=== PATIENT | female | born 1945 | race Two or more races ===

== ENCOUNTER → 2020-09-20 | Outpatient (CLI) | payer OTHER ==
[~2020-09-20] MED LIST: KOMBIGLYZE XR1 EAC2 PO; LEVSIN/SL0.125 MG SL; Mucinex 600 MG TABLET.SA PO; PEPCID20 MG PO; TESSALON PERLE100 M1 PO; TUSSIONEX PENNKI5 ML PO
== END | disposition home or self-care (01) ==
LOC: PPH VACUNA
PROVIDERS: ATTEND Emergency Medicine Pediatric Emergency Medicine
DX: Z23 Encounter for immunization (principal)

== ENCOUNTER 2023-01-03 10:16 | Emergency (ER) | payer OTHER ==
[~2023-01-03] VITALS: Ht 162.6 cm; Wt 65.3 kg
[2023-01-03] MEDS ORDERED: LISINOPRIL5 MG PO (10:40)
[2023-01-03] MEDS ORDERED: ATORVASTATIN CA20 MG PO (10:41)
== END 2023-01-03 15:18 | disposition home or self-care (01) ==
LOC: ER 10:16
DX: K29.60 Other gastritis without bleeding (principal)

== ENCOUNTER 2024-02-10 18:21 | Inpatient (IN) | payer OTHER ==
[~2024-02-10] VITALS: Ht 157.5 cm; Wt 63.5 kg
[~2024-02-10 18:21] MED LIST changes: +ATORVASTATIN CA20 MG PO; +LISINOPRIL5 MG PO
--- NOTE | 2024-02-10 18:38 | NUR ---
SE RECIBE A PTE EN AMBULANCIA ALERTA Y ORIENTADA X3. PTE REFIERE QUE DESDE HACE DOS [place]RO[place] PRESENTA VOMITOS. PTE REFIERE QUE GRIJALVA VOMITADO 12 VECES. SE UBICA EN CHAMRAINE EN AREA DE OBSERVACION.
[2024-02-10] MEDS ORDERED: 0.9 % SODIUM CHLORIDE 1,000 ML IV STA (19:41)
[2024-02-10] MEDS ORDERED: FAMOtidine 2 MG/ML REDILUIDO IV STA (19:42)
[2024-02-10] MEDS ORDERED: FAMOTIDINE/PF 20 MG/2 ML VIAL ONE (19:51)
--- NOTE | 2024-02-10 20:12 | NUR ---
SE ORIENTA PTE SOBRE TX A SEGUIR, EL CUAL REFIERE ENTENDER. SE COLECTAN MUESTRAS UTILIZANDO MEDIDAS ASEPTICAS. PTE PREVIAMENTE CANALIZADA POR AMBULANCIA. SE ADM. MEDICAMENTOS MATEUSZ ORDEN MEDICA.
[2024-02-10 20:20] LABS: HEMATOCRIT 41.7 % (36.0-45.00); HEMOGLOBIN 14.3 g/dL (12.0-15.00); MEAN CELL VOLUME 90.2 fL (80.00-100.00); MEAN CORPUSCULAR HGB CONC 34.3 g/dl (32.0-36.0); PLATELET COUNT 223 K/uL (150-450); RED BLOOD COUNT 4.62 M/uL (4.00-6.00); RED CELL DISTRIBUTION WIDTH 14.4 % (11.5-14.5)
[2024-02-10 20:44] LABS: CALCIUM 9.3 mg/dL (8.5-10.1); CREATININE SERUM 1.64 mg/dL (0.55-1.02); GFR 30.46; POTASSIUM 4.43 mEq/L (3.5-5.1)
[2024-02-10 22:44] LABS: ABG PH 7.436 (7.35-7.45); ABG pCO2 34.4 mmHg (35-45)
[2024-02-10 22:45] LABS: ABG PO2 57.2 mmHg (80-100); BASE EXCESS -0.9 mmol/l; BICARBONATE 22.6 mmol/l (23-25); SaO2 90.3 %; Tco2 23.7 mmol/l; allen test SATISFACTORY; o2 21 %; puncture site RADIAL RIGHT
[2024-02-10] MEDS ORDERED: ENOXAPARIN SODIUM 30 MG/0.3 ML SYRINGE SUBCUTANEO SCH (23:44)
[2024-02-10] MEDS ORDERED: INSULIN LISPRO 1,000 UNIT/10 ML UNITS SUBCUTANEO PRN (23:45)
[2024-02-10] MEDS ORDERED: hydrALAZINE HCL 20 MG VIAL IV PRN (23:45)
[2024-02-10] MEDS ORDERED: ONDANSETRON HCL 2 MG/ML VIAL IV PRN (23:45)
[2024-02-10] MEDS ORDERED: 0.9 % SODIUM CHLORIDE 1,000 ML IV SCH (23:45)
[2024-02-10] MEDS ORDERED: DEXTROSE 50 % IN WATER 0.5 G/ML DISP.SYRIN IV PRN (23:45)
[2024-02-11 00:30] LABS: ABG PH 7.412 (7.35-7.45); ABG PO2 157.3 mmHg (80-100); ABG pCO2 37.8 mmHg (35-45); BASE EXCESS -0.7 mmol/l; SaO2 99.4 %
[2024-02-11 00:31] LABS: BICARBONATE 23.5 mmol/l (23-25); Tco2 24.7 mmol/l; allen test SATISFACTORY; o2 50 %; puncture site RADIAL LEFT
[2024-02-11] MEDS ORDERED: DIATRIZOATE MEGLUMINE, SODIUM 30 ML BOTTLE ONE (00:42)
[2024-02-11] MEDS ORDERED: PIPERACILLIN/TAZOBACTAM SODIUM 2.25 GM in DEXTROSE 5 % IN WATER 50 ML IV SCH (01:00)
[2024-02-11 06:45] LABS: URINE APPEARANCE Cloudy; URINE BILIRRUBIN Negative (NEGATIVE); URINE BLOOD Negative; URINE COLOR Dark Yellow; URINE GLUCOSE Negative (NEGATIVE); URINE LEUKOCYTE Negative; URINE NITRATE Negative; URINE PROTEIN 30 (NEGATIVE); URINE UROBILINOGEN 0.2 E.U./dl
[2024-02-11 06:49] LABS: URINE BACTERIA 162.5 uL (0.0-1933); URINE EPITHELIAL CELLS 41.2 uL (0.0-38.8); URINE RBC 31.1 uL (0.0-20.8); URINE WBC 7.2 uL (0.0-23.2)
[2024-02-11 07:33] LABS: URINE MUCUS MODERATE
[2024-02-11] MEDS ORDERED: FAMOTIDINE/PF 20 MG/10 ML SYRINGE IV SCH (09:00)
[2024-02-11 09:13] LABS: HEMATOCRIT 35.6 % (36.0-45.00); HEMOGLOBIN 12.1 g/dL (12.0-15.00); MEAN CELL VOLUME 89.7 fL (80.00-100.00); MEAN CORPUSCULAR HEMOGLOBIN 30.5 pg (27.00-32.0); PLATELET COUNT 175 K/uL (150-450); RED BLOOD COUNT 3.97 M/uL (4.00-6.00); RED CELL DISTRIBUTION WIDTH 14.5 % (11.5-14.5)
[2024-02-11] MEDS ORDERED: DEXTROSE 50 % IN WATER 0.5 G/ML VIAL IV PRN (09:15)
[2024-02-11 09:16] LABS: ERYTHROCYTE SEDIMENTATION RATE 53 mm/hr
[2024-02-11 09:47] LABS: ALBUMIN 2.9 gm/dL (3.4-5.0); BILIRUBIN TOTAL 0.58 mg/dL (0.3-1.2); CALCIUM 8.2 mg/dL (8.5-10.1); CREATININE SERUM 0.8 mg/dL (0.55-1.02); GFR 69.74; GLOBULINA 3.7 G/DL (2.4-3.5); MAGNESIUM 1.8 mg/dL (1.8-2.4); PHOSPHOROUS 2.8 mg/dL (2.5-4.9); POTASSIUM 3.55 mEq/L (3.5-5.1); TOTAL PROTEIN 6.6 gm/dL (6.4-8.2); TSH 0.438 uIU/mL (0.358-3.74)
[2024-02-11 09:56] LABS: C-REACTIVE PROTEIN 9.34 MG/DL (0.00-0.29)
[2024-02-11] MEDS ORDERED: PIPERACILLIN/TAZOBACTAM SODIUM 3.375 GM VIAL IV ONE (17:10)
[2024-02-11] MEDS ORDERED: PIPERACILLIN/TAZOBACTAM SODIUM 3.375 GM in DEXTROSE 5 % IN WATER 100 ML IV SCH (18:00)
[2024-02-11] MEDS ORDERED: FAMOTIDINE/PF 20 MG/2 ML VIAL IV SCH (21:00)
[2024-02-12] MEDS ORDERED: PIPERACILLIN/TAZOBACTAM SODIUM 3.375 GM VIAL IV ONE ×2 (00:21→04:59)
[2024-02-12 05:49] LABS: HEMOGLOBIN 11.8 g/dL (12.0-15.00); MEAN CELL VOLUME 91.8 fL (80.00-100.00); MEAN CORPUSCULAR HEMOGLOBIN 30.9 pg (27.00-32.0); MEAN CORPUSCULAR HGB CONC 33.6 g/dl (32.0-36.0); PLATELET COUNT 161 K/uL (150-450); RED BLOOD COUNT 3.81 M/uL (4.00-6.00); RED CELL DISTRIBUTION WIDTH 14.4 % (11.5-14.5)
[2024-02-12 06:12] LABS: ALBUMIN 2.6 gm/dL (3.4-5.0); ALKALINE PHOSPHATASE 65 U/L (50-136); ALT/SGPT 21 U/L (12-78); ANION GAP 8 (10.0-20.0); AST/SGOT 14 U/L (15-37); BILIRUBIN TOTAL 0.53 mg/dL (0.3-1.2); BLOOD UREA NITROGEN 16 mg/dL (7-18); BUN CREA RATIO 26 (7.0-25.0); C-REACTIVE PROTEIN 5.12 MG/DL (0.00-0.29); CARBON DIOXIDE 27 mEq/L (21-32); CHLORIDE 113 mmol/L (98-107); CREATININE SERUM 0.62 mg/dL (0.55-1.02); GFR 93.59; GLOBULINA 3.5 G/DL (2.4-3.5); GLUCOSE FASTING 80 mg/dL (65-100); OSMOLALITY SERUM 289 MOSM/KG (275-295); PHOSPHOROUS 2.2 mg/dL (2.5-4.9); POTASSIUM 3.47 mEq/L (3.5-5.1); SODIUM 145 mmol/L (136-145); TOTAL PROTEIN 6.1 gm/dL (6.4-8.2)
[2024-02-12 06:13] LABS: CKMB < 1.0 NG/ML (0.5-3.6)
[2024-02-12] MEDS ORDERED: FAMOTIDINE/PF 20 MG/2 ML VIAL ONE (09:11)
[2024-02-12] MEDS ORDERED: LEVALBUTEROL HCL 0.63 MG/3 ML SOLUTION IH SCH (14:00)
[2024-02-12] MEDS ORDERED: LEVALBUTEROL HCL 0.63 MG/3 ML SOLUTION IH ONE (17:19)
[2024-02-13] MEDS ORDERED: LEVALBUTEROL HCL 0.63 MG/3 ML SOLUTION IH SCH (14:00)
[2024-02-13 18:35] LABS: ABG PH 7.459 (7.35-7.45); ABG PO2 87.7 mmHg (80-100); ABG pCO2 35.5 mmHg (35-45); BASE EXCESS 1.2 mmol/l; BICARBONATE 24.6 mmol/l (23-25); SaO2 97.2 %; Tco2 25.7 mmol/l; allen test SATISFACTORY; o2 21 %; puncture site RADIAL LEFT
[2024-02-14 17:29] LABS: HEMATOCRIT 34.5 % (36.0-45.00); HEMOGLOBIN 11.9 g/dL (12.0-15.00); MEAN CELL VOLUME 91.1 fL (80.00-100.00); MEAN CORPUSCULAR HEMOGLOBIN 31.4 pg (27.00-32.0); MEAN CORPUSCULAR HGB CONC 34.5 g/dl (32.0-36.0); PLATELET COUNT 173 K/uL (150-450); RED BLOOD COUNT 3.79 M/uL (4.00-6.00); RED CELL DISTRIBUTION WIDTH 13.9 % (11.5-14.5)
[2024-02-14 17:53] LABS: CALCIUM 9.1 mg/dL (8.5-10.1); CREATININE SERUM 0.64 mg/dL (0.55-1.02); GFR 90.22
[2024-02-14 18:28] LABS: POTASSIUM 2.95 mEq/L (3.5-5.1)
[2024-02-14] MEDS ORDERED: INSULIN LISPRO 1,000 UNIT/10 ML UNITS SUBCUTANEO PRN (18:45)
[2024-02-14] MEDS ORDERED: POTASSIUM CHLORIDE IN WATER 40 MEQ/100 ML PIGGYBAG IV SCH (21:00)
[2024-02-15] MEDS ORDERED: CHOLESTYRAMINE/ASPARTAME LIGHT 4 G/PKT PACKET PO SCH (17:00)
[2024-02-15] MEDS ORDERED: LACTOBACILLUS ACIDOPHILUS 1 CAP CAP PO SCH (17:00)
[2024-02-15] MEDS ORDERED: POTASSIUM CHLORIDE IN WATER 100 ML IV SCH (20:00)
[2024-02-16 09:01] LABS: ALBUMIN 2.9 gm/dL (3.4-5.0); BILIRUBIN TOTAL 0.4 mg/dL (0.3-1.2); CREATININE SERUM 0.59 mg/dL (0.55-1.02); GFR 99.1; POTASSIUM 4.43 mEq/L (3.5-5.1); TOTAL PROTEIN 5.9 gm/dL (6.4-8.2)
[2024-02-16 09:02] LABS: C-REACTIVE PROTEIN 1.49 MG/DL (0.00-0.29)
[2024-02-16] MEDS ORDERED: METRONIDAZOLE/SODIUM CHLORIDE 100 ML IV SCH (17:00)
[2024-02-16] MEDS ORDERED: POTASSIUM CHLORIDE IN WATER 100 ML IV STA (17:24)
[2024-02-17] MEDS ORDERED: INSULIN NPH HUM/REG INSULIN HM 1,000 UNIT/10 ML UNITS SUBCUTANEO SCH (08:00)
[2024-02-18 08:39] LABS: HEMATOCRIT 33.3 % (36.0-45.00); HEMOGLOBIN 11.4 g/dL (12.0-15.00); MEAN CELL VOLUME 90.7 fL (80.00-100.00); MEAN CORPUSCULAR HEMOGLOBIN 31.2 pg (27.00-32.0); MEAN CORPUSCULAR HGB CONC 34.4 g/dl (32.0-36.0); PLATELET COUNT 208 K/uL (150-450); RED BLOOD COUNT 3.67 M/uL (4.00-6.00); RED CELL DISTRIBUTION WIDTH 14.1 % (11.5-14.5)
[2024-02-18 09:20] LABS: CALCIUM 8.6 mg/dL (8.5-10.1); CREATININE SERUM 0.54 mg/dL (0.55-1.02); GFR 109.76; POTASSIUM 4.13 mEq/L (3.5-5.1)
== END 2024-02-18 13:15 | disposition home or self-care (01) | DRG 684 ==
LOC: ER 18:21 → SEC-K 23:52 → MEDJ 02-12 17:20
PROVIDERS: Emergency Medicine; Internal Medicine; Internal Medicine Infectious Disease; Specialist; ADMIT Internal Medicine Geriatric Medicine; ATTEND Internal Medicine Geriatric Medicine
PROC: BW24ZZZ Computerized Tomography (CT Scan) of Chest and Abdomen (ICD-10-PCS; principal; 2024-02-10)
PROC: BW21YZZ Computerized Tomography (CT Scan) of Abdomen and Pelvis using Other Contrast (ICD-10-PCS; 2024-02-10)
PROC: 02HV33Z Insertion of Infusion Device into Superior Vena Cava, Percutaneous Approach (ICD-10-PCS; 2024-02-11)
DX: N17.9 Acute kidney failure, unspecified (principal); E86.0 Dehydration; I95.9 Hypotension, unspecified; R09.02 Hypoxemia; U09.9 Post COVID-19 condition, unspecified; E11.65 Type 2 diabetes mellitus with hyperglycemia; Z79.4 Long term (current) use of insulin

== ENCOUNTER 2025-01-19 13:47 | Emergency (ER) | payer OTHER ==
[~2025-01-19] VITALS: Ht 162.6 cm; Wt 64.0 kg
[2025-01-19] MEDS ORDERED: JANUMET 50-1,01 EACH PO (14:16)
[2025-01-19] MEDS ORDERED: GUAIFENESIN 200 MG/10 ML BLIST.PACK PO STA (14:27)
[2025-01-19] MEDS ORDERED: GUAIFENESIN 200 MG/10 ML BLIST.PACK PO ONE (14:33)
[2025-01-19 15:10] LABS: BASO % 0.5 % (0.1-1.2); EOS # 0.12 (0.04-0.54); HEMATOCRIT 39.4 % (34.1-44.9); HEMOGLOBIN 12.6 g/dL (11.2-15.7); LYMPH # 1.27 (1.18-3.74); LYMPH % 20.7 % (19.3-53.1); MEAN CORPUSCULAR HEMOGLOBIN 29.4 pg (25.6-32.2); MONO # 0.56 (0.24-0.82); MONO % 9.1 % (4.7-12.5); NEUT # 4.16 (1.56-6.13); NEUT % 67.5 % (34.0-71.1); PLATELET COUNT 234 K/uL (163-369); RED BLOOD COUNT 4.28 M/uL (3.93-5.22); RED CELL DISTRIBUTION WIDTH 13.3 % (11.6-14.4)
[2025-01-19 16:23] LABS: PH,URINE 5.5 (5.0-8.0); URINE APPEARANCE Clear; URINE BILIRRUBIN Negative (NEGATIVE); URINE BLOOD Trace; URINE COLOR Yellow; URINE GLUCOSE Negative (NEGATIVE); URINE KETONE Negative (NEGATIVE); URINE LEUKOCYTE Negative; URINE NITRATE Negative; URINE PROTEIN Negative (NEGATIVE); URINE UROBILINOGEN 0.2 E.U./dl
[2025-01-19 16:26] LABS: URINE BACTERIA 6.1 uL (0.0-1933); URINE EPITHELIAL CELLS 9.3 uL (0.0-38.8); URINE RBC 16.9 uL (0.0-20.8); URINE WBC 2.9 uL (0.0-23.2)
[2025-01-19 16:38] LABS: COVID-19 AG NEGATIVE (NEGATIVE)
[2025-01-19 16:42] LABS: INFLUENZA A AG NEGATIVE (NEGATIVE); INFLUENZA B AG NEGATIVE (NEGATIVE)
[2025-01-19] MEDS ORDERED: LIDOCAINE HCL 1% 10ML VIAL ONE (16:52)
[2025-01-19] MEDS ORDERED: CEFTRIAXONE SODIUM 1,000 MG VIAL IM STA (16:53)
[2025-01-19] MEDS ORDERED: CEFTRIAXONE SODIUM 1,000 MG VIAL ONE (16:53)
== END 2025-01-19 17:01 | disposition home or self-care (01) ==
LOC: ER 13:47
PROVIDERS: Emergency Medicine
DX: J06.9 Acute upper respiratory infection, unspecified (principal); Z20.822 Contact with and (suspected) exposure to COVID-19; I10 Essential (primary) hypertension; E11.9 Type 2 diabetes mellitus without complications; Z79.84 Long term (current) use of oral hypoglycemic drugs
CPT/HCPCS: 36415; 71046; 99283; J0696